=== PATIENT | male | born 1990 | race Caucasian/White ===

== ENCOUNTER 2017-04-26 08:01 | Inpatient (IN) | payer OTHER ==
[~2017-04-26] VITALS: Ht 177.8 cm; Wt 78.4 kg
[2017-04-26] MEDS ORDERED: CLON-570 PO (08:05)
[2017-04-26] MEDS ORDERED: DIAZEPAM 5 MG/ML 2 ML SYRINGE IVP ONE ×2 (08:15→10:45)
[2017-04-26] MEDS ORDERED: KETOROLAC TROMETHAMINE 30 MG/ML VIAL IVP ONE (08:15)
[2017-04-26] MEDS ORDERED: SODIUM CHLORIDE 0.9% 1,000 ML IV ONE (08:15)
[2017-04-26 09:15] LABS: APPEARANCE,URINE CLEAR (CLEAR); GLUCOSE, URINE (UA) NEGATIVE (NEGATIVE); KETONES,URINE NEGATIVE (NEGATIVE); LEUKOCYTE ESTERASE ,URINE NEGATIVE (NEGATIVE); OCCULT BLOOD,URINE NEGATIVE (NEGATIVE); PH,URINE 6.5 (5.0-8.0); PROTEIN,URINE NEGATIVE (NEGATIVE)
[2017-04-26 09:27] LABS: RBC,URINE None Seen /HPF (0-2); SQUAMOUS EPITHELIAL CELL,UR Rare /LPF (None Seen); WBC,URINE None Seen /HPF (0-5)
[2017-04-26 09:33] LABS: BASOPHILS # (AUTO) 0.03 K/uL (0.00-0.20); BASOPHILS % (AUTO) 0.3 % (0.0-2.0); EOSINOPHILS # (AUTO) 0.04 K/uL (0.00-0.70); EOSINOPHILS % (AUTO) 0.33 % (1.0-6.0); HEMATOCRIT 42.4 % (41-53); HEMOGLOBIN 14.2 g/dL (13.5-17.5); LYMPHOCYTES # (AUTO) 1.1 K/uL (1.0-4.8); LYMPHOCYTES % (AUTO) 10.4 % (22.0-44.0); MEAN CORPUSCULAR HEMOGLOBIN 30.5 pg (26.0-34.0); MEAN CORPUSCULAR HGB CONC 33.4 G/dL (31.0-37.0); MEAN CORPUSCULAR VOLUME 91 fL (80-100); MONOCYTES # (AUTO) 0.5 K/uL (0.1-1.0); MONOCYTES % (AUTO) 4.6 % (2.0-9.0); NEUTROPHILS # (AUTO) 9.1 K/uL (1.8-7.7); NEUTROPHILS % (AUTO) 84.3 % (40.0-70.0); PLATELET COUNT (AUTO) 277 K/uL (150-450); RED BLOOD CELL COUNT(AUTO) 4.64 MIL/uL (4.50-5.90); RED CELL DISTRIBUTION WIDTH 12.9 % (11.5-14.5); WHITE BLOOD COUNT (AUTO) 10.8 K/uL (4.5-11.0)
[2017-04-26 09:40] LABS: ANION GAP 5 mmol/L (8-16); CALCIUM, TOTAL 8.9 mg/dL (8.8-10.5); CARBON DIOXIDE 28 mmol/L (22-29); CHLORIDE 109 mmol/L (98-107); CREATININE 0.85 mg/dL (0.60-1.30); GLOMERULAR FILTR. RATE CALC > 60 mL/min (>60); POTASSIUM 3.9 mmol/L (3.5-5.1); SODIUM SERUM 142 mmol/L (136-145); UREA NITROGEN, BLOOD 8 mg/dL (7-18)
[2017-04-26 09:46] LABS: ALANINE AMINOTRANSFERASE 30 U/L (12-78); ASPARTATE AMINOTRANSFERASE 16 U/L (15-37); BILIRUBIN,TOTAL 0.2 mg/dL (0.1-1.0); TOTAL PROTEIN, SERUM 6.8 g/dL (6.4-8.2)
[2017-04-26] MEDS ORDERED: LORazepam 2 MG/ML VIAL IVP ONE (11:00)
[2017-04-26] MEDS ORDERED: ACETAMINOPHEN 325 MG TABLET PO PRN ×2 (11:30→14:00)
[2017-04-26] MEDS ORDERED: LORazepam 2 MG/ML VIAL IVP PRN (11:30)
[2017-04-26] MEDS ORDERED: ONDANSETRON HCL 4 MG/2 ML VIAL IVP PRN ×2 (11:30→14:00)
[2017-04-26 12:45] VITALS: BP 100/75
[2017-04-26 12:50] VITALS: BP 139/75
[2017-04-26] MEDS ORDERED: BISACODYL 10 MG RECTAL RECTAL SUPPOSITORY PR PRN (14:00)
[2017-04-26] MEDS ORDERED: MAGNESIUM SULFATE 2 GM, MVI, ADULT NO.1 WITH VIT K 10 ML, THIAMINE HCL 100 MG, FOLIC AC... IV ONE ×5 (14:00)
[2017-04-26] MEDS ORDERED: MAGNESIUM HYDROXIDE SUSPENSION 30 ML UDCUP PO PRN (14:00)
[2017-04-26] MEDS: MORPHINE SULFATE 2 MG/ML SYRINGE IVP PRN ×3 (14:15→23:05)
[2017-04-26] MEDS: LORazepam 2 MG/ML VIAL IVP PRN ×2 (15:00→19:51)
[2017-04-26] MEDS: NICOTINE 14 MG/24 HOUR PATCH TD SCH (15:02)
[2017-04-26] MEDS: HYDROCODONE/ACETAMINOPHEN 5-325 MG TABLET PO PRN ×2 (15:05→19:50)
[2017-04-26 15:38] VITALS: BP 150/79
[2017-04-26] MEDS: CYCLOBENZAPRINE HCL 10 MG TABLET PO PRN (17:25)
[2017-04-26] MEDS: HEPARIN SODIUM,PORCINE 5,000 UNITS/ML VIAL SQ SCH ×2 (17:26→23:05)
[2017-04-26 19:36] VITALS: BP 133/79
[2017-04-26] MEDS: DOCUSATE SODIUM 100 MG CAPSULE PO SCH (19:50)
[2017-04-26] MEDS: ZOLPIDEM TARTRATE 5 MG TABLET PO PRN (21:14)
[2017-04-26 23:20] VITALS: BP 146/74
[2017-04-27 04:29] VITALS: BP 118/59
[2017-04-27 05:25] VITALS: BP 126/62
[2017-04-27] MEDS: LORazepam 2 MG/ML VIAL IVP PRN ×4 (05:25→19:30)
[2017-04-27] MEDS: HYDROCODONE/ACETAMINOPHEN 5-325 MG TABLET PO PRN ×4 (05:25→19:30)
[2017-04-27] MEDS: MORPHINE SULFATE 2 MG/ML SYRINGE IVP PRN ×4 (07:33→20:54)
[2017-04-27] MEDS: NICOTINE 14 MG/24 HOUR PATCH TD SCH (07:41)
[2017-04-27 08:10] VITALS: BP 133/85
[2017-04-27] MEDS: HEPARIN SODIUM,PORCINE 5,000 UNITS/ML VIAL SQ SCH ×3 (09:00→23:22)
[2017-04-27] MEDS: DOCUSATE SODIUM 100 MG CAPSULE PO SCH ×2 (09:00→19:54)
[2017-04-27] MEDS: PANTOPRAZOLE SODIUM 40 MG DR TABLET PO SCH (09:00)
[2017-04-27 11:17] VITALS: BP 130/65
[2017-04-27] MEDS: CYCLOBENZAPRINE HCL 10 MG TABLET PO PRN (13:24)
[2017-04-27 16:23] VITALS: BP 137/73
[2017-04-27 19:47] VITALS: BP 130/72
[2017-04-27] MEDS: ZOLPIDEM TARTRATE 5 MG TABLET PO PRN (20:54)
[2017-04-27] MEDS ORDERED: TraZODone HCL 50 MG TABLET PO SCH (21:00)
[2017-04-28] VITALS: BP 122/71
[2017-04-28] MEDS: MORPHINE SULFATE 2 MG/ML SYRINGE IVP PRN ×2 (03:31→08:23)
[2017-04-28 03:43] VITALS: BP 127/70
[2017-04-28] MEDS: HYDROCODONE/ACETAMINOPHEN 5-325 MG TABLET PO PRN (05:02)
[2017-04-28] MEDS: LORazepam 2 MG/ML VIAL IVP PRN (05:02)
[2017-04-28] MEDS: HEPARIN SODIUM,PORCINE 5,000 UNITS/ML VIAL SQ SCH (08:00)
[2017-04-28 08:08] VITALS: BP 117/71
[2017-04-28] MEDS: DOCUSATE SODIUM 100 MG CAPSULE PO SCH (08:11)
[2017-04-28] MEDS: NICOTINE 14 MG/24 HOUR PATCH TD SCH (08:22)
[2017-04-28] MEDS: PANTOPRAZOLE SODIUM 40 MG DR TABLET PO SCH (08:22)
[2017-04-28] MEDS ORDERED: TRAZ-144 PO (11:05)
[2017-04-28] MEDS ORDERED: CYCL10 PO (11:07)
[2017-04-28 12:10] VITALS: BP 118/71
== END 2017-04-28 14:20 | disposition home or self-care (01) | DRG 773 ==
LOC: EMS 08:02 → 5S 11:42
PROVIDERS: ADMIT Internal Medicine; ATTEND Internal Medicine
DX: F13.239 Sedative, hypnotic or anxiolytic dependence with withdrawal, unspecified (principal); F11.20 Opioid dependence, uncomplicated; I10 Essential (primary) hypertension; R00.1 Bradycardia, unspecified; F41.9 Anxiety disorder, unspecified; Z79.899 Other long term (current) drug therapy
CPT/HCPCS: 83735; 93005; 96361; 96374; 96375; 99285; J1644; J1885; J2060; J2270; J3411; J3475; J3490; J7030

== ENCOUNTER 2020-06-11 12:48 | Inpatient (IN) | payer OTHER ==
[~2020-06-11] VITALS: Ht 177.8 cm; Wt 81.8 kg
[~2020-06-11 12:48] MED LIST: CLON0.1T83 PO; CYCL10 PO; TRAZ-184 PO
[2020-06-11] MEDS ORDERED: LORazepam 2 MG/ML VIAL IVP ONE (13:30)
[2020-06-11] MEDS ORDERED: LORazepam 2 MG/ML VIAL IM ONE (14:30)
[2020-06-11] MEDS ORDERED: DiphenhydrAMINE HCL 50 MG/ML VIAL IM ONE (14:30)
[2020-06-11] MEDS ORDERED: HALOPERIDOL LACTATE 5 MG/ML VIAL IM ONE (14:30)
[2020-06-11 14:39] LABS: COVID AG,FIA SOURCE NASOPHARYNGEAL
[2020-06-11] MEDS ORDERED: ACETAMINOPHEN 325 MG TABLET PO PRN (14:45)
[2020-06-11 14:54] LABS: AMPHET/METH SCREEN,URINE NEGATIVE (NEGATIVE); BARBITURATE SCREEN, URINE NEGATIVE (NEGATIVE); BENZODIAZEPINES SCREEN,URINE NEGATIVE (NEGATIVE); CANNABINOID SCREEN,URINE NEGATIVE (NEGATIVE); COCAINE SCREEN,URINE NEGATIVE (NEGATIVE); METHADONE SCREEN, URINE NEGATIVE (NEGATIVE); OPIATE SCREEN,URINE NEGATIVE (NEGATIVE)
[2020-06-11 15:13] LABS: BASOPHILS % (AUTO) 0.2 % (0.0-2.0); EOSINOPHILS % (AUTO) 0.6 % (1.0-6.0); HEMOGLOBIN 15.8 g/dL (13.5-17.5); LYMPHOCYTES # (AUTO) 2.4 K/uL (1.0-4.8); LYMPHOCYTES % (AUTO) 17.3 % (22.0-44.0); MEAN CORPUSCULAR HEMOGLOBIN 30.8 pg (26.0-34.0); MEAN CORPUSCULAR HGB CONC 34.3 G/dL (31.0-37.0); MEAN CORPUSCULAR VOLUME 90 fL (80-100); MONOCYTES % (AUTO) 7.2 % (2.0-9.0); NEUTROPHILS # (AUTO) 10.2 K/uL (1.8-7.7); NEUTROPHILS % (AUTO) 74.7 % (40.0-70.0); PLATELET COUNT (AUTO) 306 K/uL (150-450); RED BLOOD CELL COUNT(AUTO) 5.13 MIL/uL (4.50-5.90); RED CELL DISTRIBUTION WIDTH 12.7 % (11.5-14.5)
[2020-06-11 15:19] LABS: PHENCYCLIDINE SCREEN,URINE NEGATIVE (NEGATIVE)
[2020-06-11 15:27] LABS: ANION GAP 8 mmol/L (8-16); CALCIUM, TOTAL 8.3 mg/dL (8.8-10.5); CARBON DIOXIDE 25 mmol/L (22-29); CHLORIDE 105 mmol/L (98-107); GLOMERULAR FILTR. RATE CALC > 60 mL/min (>60); GLUCOSE,RANDOM 94 mg/dL (70-110); POTASSIUM 3.6 mmol/L (3.5-5.1); SODIUM SERUM 138 mmol/L (136-145); UREA NITROGEN, BLOOD 11 mg/dL (7-18)
[2020-06-11 15:32] LABS: ALANINE AMINOTRANSFERASE 52 U/L (12-78); ALBUMIN 3.4 g/dL (3.4-5.0); ALKALINE PHOSPHATASE 88 U/L (46-116); ASPARTATE AMINOTRANSFERASE 25 U/L (15-37); BILIRUBIN,TOTAL 0.6 mg/dL (0.1-1.0)
[2020-06-11] MEDS ORDERED: SODIUM CHLORIDE 0.9% 1,000 ML IV ONE (16:30)
[2020-06-11] MEDS ORDERED: METOCLOPRAMIDE HCL 5 MG/ML 2 ML VIAL IVP PRN (16:30)
[2020-06-11] MEDS ORDERED: DICYCLOMINE HCL 10 MG CAPSULE PO PRN (16:30)
[2020-06-11] MEDS ORDERED: LOPERAMIDE HCL 2 MG CAPSULE PO PRN (16:30)
[2020-06-11 20:20] VITALS: BP 109/62
[2020-06-11] MEDS: TEMAZEPAM 15 MG CAPSULE PO SCH (21:17)
[2020-06-11] MEDS ORDERED: INFLUENZA VIRUS VACCINE QVS 2020-21 (6MO+)/PF 60 MCG/0.5 ML SYRINGE IM ONE (21:45)
[2020-06-11] MEDS: LORazepam 2 MG/ML VIAL IM PRN (23:48)
[2020-06-12 00:02] VITALS: BP 163/74
[2020-06-12] MEDS: ACETAMINOPHEN/CODEINE 300-15 MG TABLET PO PRN (03:49)
[2020-06-12 05:05] VITALS: BP 123/63
[2020-06-12] MEDS: LORazepam 2 MG/ML VIAL IM PRN ×4 (06:14→20:25)
[2020-06-12] MEDS ORDERED: LORazepam 2 MG/ML VIAL IM ONE (07:45)
[2020-06-12 08:22] VITALS: BP 124/83
[2020-06-12] MEDS ORDERED: LOPERAMIDE HCL 2 MG CAPSULE PO PRN (13:30)
[2020-06-12] MEDS ORDERED: HALOPERIDOL LACTATE 5 MG/ML VIAL IM ONE (13:30)
[2020-06-12] MEDS ORDERED: MAG HYDROX/AL HYDROX/SIMETH ES 30 ML SUSPENSION UDCUP PO PRN (13:30)
[2020-06-12] MEDS: CloNIDine HCL 0.1 MG TABLET PO SCH ×2 (16:53→22:28)
[2020-06-12 20:09] VITALS: BP 102/72
[2020-06-12] MEDS: TEMAZEPAM 15 MG CAPSULE PO SCH (20:25)
[2020-06-12 23:13] VITALS: BP 109/69
[2020-06-13] VITALS (7 sets, daily range): BP systolic 109–147; BP diastolic 40–99
[2020-06-13] MEDS: LORazepam 2 MG/ML VIAL IM PRN ×3 (02:46→10:59)
[2020-06-13] MEDS: CloNIDine HCL 0.1 MG TABLET PO SCH ×4 (05:13→21:33)
[2020-06-13] MEDS: CloNIDine HCL 0.1 MG TABLET PO PRN (07:54)
[2020-06-13] MEDS: ACETAMINOPHEN/CODEINE 300-15 MG TABLET PO PRN ×2 (11:12→17:19)
[2020-06-13] MEDS: SODIUM CHLORIDE 0.45% 1,000 ML IV SCH (11:45)
[2020-06-13] MEDS: LORazepam 2 MG/ML VIAL IVP PRN ×2 (15:30→20:00)
[2020-06-13] MEDS: TEMAZEPAM 15 MG CAPSULE PO SCH (21:33)
[2020-06-14] MEDS: LORazepam 2 MG/ML VIAL IVP PRN ×4 (02:22→21:04)
[2020-06-14 06:01] VITALS: BP 116/71
[2020-06-14] MEDS: CloNIDine HCL 0.1 MG TABLET PO SCH ×4 (06:28→23:30)
[2020-06-14] MEDS ORDERED: METHADONE HCL 10 MG TABLET PO ONE (07:30)
[2020-06-14 07:36] VITALS: BP 113/91
[2020-06-14] MEDS: HALOPERIDOL 10 MG TABLET PO SCH ×2 (11:32→21:03)
[2020-06-14] MEDS: SODIUM CHLORIDE 0.45% 1,000 ML IV SCH ×2 (14:10→15:49)
[2020-06-14 20:51] VITALS: BP 126/63
[2020-06-14] MEDS: BENZTROPINE MESYLATE 1 MG TABLET PO SCH (20:59)
[2020-06-14] MEDS: TEMAZEPAM 15 MG CAPSULE PO SCH (21:00)
[2020-06-14] MEDS: IBUPROFEN 600 MG TABLET PO PRN (21:08)
[2020-06-15 05:16] VITALS: BP 131/69
[2020-06-15] MEDS: CloNIDine HCL 0.1 MG TABLET PO PRN (05:21)
[2020-06-15] MEDS: CloNIDine HCL 0.1 MG TABLET PO SCH ×4 (07:12→21:43)
[2020-06-15] MEDS: BENZTROPINE MESYLATE 1 MG TABLET PO SCH ×2 (08:31→20:15)
[2020-06-15] MEDS: HALOPERIDOL 10 MG TABLET PO SCH ×2 (08:31→20:15)
[2020-06-15 08:34] VITALS: BP 100/60
[2020-06-15] MEDS ORDERED: METHADONE HCL 10 MG TABLET PO ONE (09:00)
[2020-06-15 12:41] LABS: BASOPHILS % (AUTO) 0.4 % (0.0-2.0); EOSINOPHILS % (AUTO) 1.6 % (1.0-6.0); HEMATOCRIT 45.8 % (41-53); HEMOGLOBIN 15.5 g/dL (13.5-17.5); LYMPHOCYTES # (AUTO) 2.8 K/uL (1.0-4.8); LYMPHOCYTES % (AUTO) 15.6 % (22.0-44.0); MEAN CORPUSCULAR HEMOGLOBIN 30.8 pg (26.0-34.0); MEAN CORPUSCULAR HGB CONC 33.8 G/dL (31.0-37.0); MEAN CORPUSCULAR VOLUME 91 fL (80-100); MONOCYTES # (AUTO) 1.4 K/uL (0.1-1.0); MONOCYTES % (AUTO) 7.7 % (2.0-9.0); NEUTROPHILS # (AUTO) 13.5 K/uL (1.8-7.7); NEUTROPHILS % (AUTO) 74.7 % (40.0-70.0); PLATELET COUNT (AUTO) 258 K/uL (150-450); RED BLOOD CELL COUNT(AUTO) 5.03 MIL/uL (4.50-5.90); RED CELL DISTRIBUTION WIDTH 12.2 % (11.5-14.5)
[2020-06-15 13:10] LABS: ALANINE AMINOTRANSFERASE 72 U/L (12-78); ALBUMIN 2.7 g/dL (3.4-5.0); ALKALINE PHOSPHATASE 97 U/L (46-116); ANION GAP 6 mmol/L (8-16); ASPARTATE AMINOTRANSFERASE 28 U/L (15-37); BILIRUBIN,TOTAL 0.3 mg/dL (0.1-1.0); CALCIUM, TOTAL 8.4 mg/dL (8.8-10.5); CARBON DIOXIDE 26 mmol/L (22-29); CHLORIDE 103 mmol/L (98-107); CREATININE 0.89 mg/dL (0.60-1.30); GLOMERULAR FILTR. RATE CALC > 60 mL/min (>60); GLUCOSE,RANDOM 115 mg/dL (70-110); POTASSIUM 4.4 mmol/L (3.5-5.1); SODIUM SERUM 135 mmol/L (136-145); TOTAL PROTEIN, SERUM 6.6 g/dL (6.4-8.2); UREA NITROGEN, BLOOD 10 mg/dL (7-18)
[2020-06-15] MEDS: CLINDAMYCIN HCL 300 MG CAPSULE PO SCH ×2 (14:20→18:49)
[2020-06-15] MEDS: LEVOFLOXACIN 500 MG TABLET PO SCH (14:20)
[2020-06-15] MEDS: SODIUM CHLORIDE 0.45% 1,000 ML IV SCH (16:50)
[2020-06-15] MEDS: LORazepam 1 MG TABLET PO PRN (18:49)
[2020-06-15] MEDS: TEMAZEPAM 15 MG CAPSULE PO SCH (20:15)
[2020-06-15 20:20] VITALS: BP 114/67
[2020-06-16] MEDS: LORazepam 1 MG TABLET PO PRN ×4 (00:32→21:42)
[2020-06-16] MEDS: CLINDAMYCIN HCL 300 MG CAPSULE PO SCH ×4 (00:32→23:53)
[2020-06-16 05:49] VITALS: BP 114/52
[2020-06-16] MEDS: SODIUM CHLORIDE 0.45% 1,000 ML IV SCH ×2 (06:10→19:30)
[2020-06-16] MEDS: CloNIDine HCL 0.1 MG TABLET PO SCH ×4 (06:49→22:15)
[2020-06-16] MEDS: LEVOFLOXACIN 500 MG TABLET PO SCH (08:03)
[2020-06-16] MEDS: HALOPERIDOL 10 MG TABLET PO SCH ×2 (08:04→20:07)
[2020-06-16] MEDS: BENZTROPINE MESYLATE 1 MG TABLET PO SCH ×2 (08:05→20:07)
[2020-06-16 08:49] VITALS: BP 111/67
[2020-06-16] MEDS ORDERED: METHADONE HCL 10 MG TABLET PO ONE (09:00)
[2020-06-16 16:39] VITALS: BP 128/74
[2020-06-16 20:01] VITALS: BP 108/60
[2020-06-16] MEDS: TEMAZEPAM 15 MG CAPSULE PO SCH (20:07)
[2020-06-16 22:13] VITALS: BP 118/78
[2020-06-16 23:39] VITALS: BP 111/66
[2020-06-17] MEDS: LORazepam 1 MG TABLET PO PRN (02:01)
[2020-06-17] MEDS: ACETAMINOPHEN/CODEINE 300-15 MG TABLET PO PRN (03:32)
[2020-06-17 05:26] VITALS: BP 100/64
[2020-06-17] MEDS: CloNIDine HCL 0.1 MG TABLET PO SCH ×4 (05:46→23:21)
[2020-06-17] MEDS ORDERED: METHADONE HCL 10 MG TABLET PO ONE (07:30)
[2020-06-17 07:46] VITALS: BP 96/51
[2020-06-17] MEDS: CLINDAMYCIN HCL 300 MG CAPSULE PO SCH ×3 (08:45→23:21)
[2020-06-17] MEDS: LEVOFLOXACIN 500 MG TABLET PO SCH (08:46)
[2020-06-17] MEDS: HALOPERIDOL 10 MG TABLET PO SCH ×2 (08:48→20:05)
[2020-06-17] MEDS: BENZTROPINE MESYLATE 1 MG TABLET PO SCH ×2 (08:48→20:05)
[2020-06-17] MEDS: SODIUM CHLORIDE 0.45% 1,000 ML IV SCH ×2 (08:50→22:10)
[2020-06-17] MEDS ORDERED: BENZ1TAB10 PO (16:22)
[2020-06-17] MEDS ORDERED: CLIN300C3 PO (16:23)
[2020-06-17] MEDS ORDERED: HALO10 PO (16:24)
[2020-06-17] MEDS ORDERED: LEVO-72 PO (16:25)
[2020-06-17] MEDS ORDERED: TEMA15CA PO (16:26)
[2020-06-17] MEDS: IBUPROFEN 600 MG TABLET PO PRN (16:38)
[2020-06-17 19:00] VITALS: BP 130/72
[2020-06-17] MEDS: TEMAZEPAM 15 MG CAPSULE PO SCH (20:05)
[2020-06-17 23:25] VITALS: BP 130/67
[2020-06-18 04:28] LABS: COVID AG,FIA SOURCE NASAL SWAB
[2020-06-18] MEDS: CloNIDine HCL 0.1 MG TABLET PO SCH (06:00)
== END 2020-06-18 07:30 | DRG 897 ==
LOC: EMS 12:48 → 6S 15:32
PROVIDERS: ADMIT Internal Medicine; ATTEND Internal Medicine
DX: F11.90 Opioid use, unspecified, uncomplicated (principal); D72.829 Elevated white blood cell count, unspecified; B02.9 Zoster without complications; F41.9 Anxiety disorder, unspecified; Z87.891 Personal history of nicotine dependence; Z20.828 Contact with and (suspected) exposure to other viral communicable diseases
CPT/HCPCS: 70486; 80074; 84145; 87426; 99291; G0480; J1200; J1630; J2060; J7030; 36415-L1; 36415-TC; 71045-TC

== ENCOUNTER 2020-07-07 16:40 | Emergency (ER) | payer OTHER ==
[~2020-07-07] VITALS: Ht 182.9 cm; Wt 86.4 kg
[~2020-07-07 16:40] MED LIST changes: +BENZ1TAB10 PO; +CLIN300C3 PO; -CYCL10 PO; +HALO10 PO; +LEVO-72 PO; +TEMA15CA PO; -TRAZ-184 PO
[2020-07-07 17:22] LABS: BASOPHILS % (AUTO) 0.3 % (0.0-2.0); EOSINOPHILS % (AUTO) 1.4 % (1.0-6.0); HEMATOCRIT 48.9 % (41-53); HEMOGLOBIN 16.4 g/dL (13.5-17.5); LYMPHOCYTES # (AUTO) 2.4 K/uL (1.0-4.8); LYMPHOCYTES % (AUTO) 18.7 % (22.0-44.0); MEAN CORPUSCULAR HEMOGLOBIN 30.9 pg (26.0-34.0); MEAN CORPUSCULAR HGB CONC 33.6 G/dL (31.0-37.0); MEAN CORPUSCULAR VOLUME 92 fL (80-100); MONOCYTES # (AUTO) 0.9 K/uL (0.1-1.0); MONOCYTES % (AUTO) 6.7 % (2.0-9.0); NEUTROPHILS # (AUTO) 9.5 K/uL (1.8-7.7); NEUTROPHILS % (AUTO) 72.9 % (40.0-70.0); PLATELET COUNT (AUTO) 242 K/uL (150-450); RED BLOOD CELL COUNT(AUTO) 5.32 MIL/uL (4.50-5.90); RED CELL DISTRIBUTION WIDTH 13.2 % (11.5-14.5)
[2020-07-07] MEDS ORDERED: SODIUM CHLORIDE 0.9% 1,000 ML IV ONE (17:45)
[2020-07-07] MEDS ORDERED: DiphenhydrAMINE HCL 50 MG/ML VIAL IVP ONE (18:00)
[2020-07-07 18:58] LABS: ANION GAP 12 mmol/L (8-16); CALCIUM, TOTAL 8.8 mg/dL (8.8-10.5); CARBON DIOXIDE 23 mmol/L (22-29); CHLORIDE 104 mmol/L (98-107); CREATININE 0.96 mg/dL (0.60-1.30); GLOMERULAR FILTR. RATE CALC > 60 mL/min (>60); GLUCOSE,RANDOM 108 mg/dL (70-110); POTASSIUM 3.7 mmol/L (3.5-5.1); SODIUM SERUM 139 mmol/L (136-145); UREA NITROGEN, BLOOD 9 mg/dL (7-18)
[2020-07-07 19:05] LABS: SALICYLATE 0.8 mg/dL (2.8-20.0)
[2020-07-07 19:07] LABS: ALBUMIN 3.6 g/dL (3.4-5.0); ALKALINE PHOSPHATASE 102 U/L (46-116); ASPARTATE AMINOTRANSFERASE 24 U/L (15-37); BILIRUBIN,TOTAL 0.2 mg/dL (0.1-1.0); TOTAL PROTEIN, SERUM 7.3 g/dL (6.4-8.2)
[2020-07-07 19:10] LABS: ALANINE AMINOTRANSFERASE 73 U/L (12-78)
[2020-07-07 19:20] LABS: ACETAMINOPHEN < 2 mcg/mL (10-30)
[2020-07-07 19:44] VITALS: BP 148/88
== END 2020-07-07 19:51 | disposition left against medical advice (07) ==
LOC: EMS 16:40
DX: T43.222A Poisoning by selective serotonin reuptake inhibitors, intentional self-harm, initial encounter (principal); F17.210 Nicotine dependence, cigarettes, uncomplicated; F11.90 Opioid use, unspecified, uncomplicated; F14.90 Cocaine use, unspecified, uncomplicated; Y92.89 Other specified places as the place of occurrence of the external cause
CPT/HCPCS: 80053; 85025; 93005; 96361; 96374; 99291; G0480; J1200; G0481